=== PATIENT | male | born 1940 | race Caucasian/White ===

== ENCOUNTER 2016-08-23 15:20 | Emergency (ER) | payer MEDICARE ==
[~2016-08-23 15:20] MED LIST: ACETAMINOPHEN500 M4 GT; ADVAIR 2501 DISK W/D; ADVAIR 2501 DISK W/D IH; ADVAIR 25028 BLISTE1 INH; ADVAIR 25028 BLISTER INH; ADVAIR HFA 115-12 G1 IH; ADVAIR HFA 1151 PUFF INH; ALBUTEROL SULF8.5 GM IH; AMARYL2 M1 GT; AMARYL2 MG GT; AMARYL4 MG PO; AMBIEN CR12.5 MG GT; AMBIEN CR12.5 MG/BO GT; AMBIEN PAK10 MG; AMBIEN10 M1 GT; AMBIEN10 MG PO; ARTHROTEC 751 TAB.EC; ASPIR 8181 MG; ASPIR 8181 MG PO; ASPIR-TRIN325 M2 GT; ASPIRIN325 M3 GT; ASPIRIN325 MG GT; ASPIRIN325 MG PO; AZITHROMYCIN250 MG PO; BACTRIM DS TABL1 TAB; BISAC-EVAC10 MG RC; BISOPROLOL FUMAR5 MG PO; BROVANA15 MCG/22 INH; BUDESONIDE0.5 MG/21 IH; BUSPIRONE HCL15 M2 GT; BYSTOLIC2.5 MG PO; BYSTOLIC5 M1 GT; CAL; CAL HN; CEFPODOXIME PR200 MG GT; CHOLESTYRAMINE P4 GM GT; CITRATE OF MAG300 M1 PO; CLINDAMYCIN HC150 MG GT; CLINDAMYCIN HC300 M2 PO; CLONAZEPAM0.5 M2 GT; COLACE1 EAC1 RC; COLACE100 MG PO; COMBIVENT INH14.7 GM; COUGH SYRU100 MG/5 M GT; CRESTOR10 MG; CRESTOR10 MG GT; CRESTOR10 MG PO; CRESTOR10 MG/TAB GT; CRESTOR10 MG/TAB PO; CULTURELLE1 CAP GT; CULTURELLE1 EAC1 GT; CYMBALTA60 M1 PO; DAPTOMYCIN IV; DELTASONE10 MG PO; DIFLUCAN100 MG GT; DIMETAPP COLD GT; DULOXETINE HCL60 M1 GT; DUO-NEB; DUONEB 2.5-0.5 M3 ML; DUONEB 2.5-0.5 M3 ML IH; DUONEB 2.5-0.5 M3 ML NEB; DUONEB 2.5-0.5MG3 M1 AERO NEB; ECOTRIN325 M2 GT; EFFEXOR XR150 MG; EFFEXOR XR150 MG PO; EFFEXOR75 MG; ENEMA READY TO133 M1 RC; FANAPT10 MG GT; FANAPT6 MG PO; FEOSOL GT; FISH OIL 1,0001 CA1; FISH OIL 1,2001 CAP PO; FLOMAX0.4 MG GT; FLUVOXAMINE MA100 M3 GT; FLUVOXAMINE MA100 M3 PO; FLUVOXAMINE MA150 MG GT; GEODON80 MG; GEODON80 MG GT; GEODON80 MG PO; GLUCAGEN1 MG/1 ML IM; GLUCAGON EME1 MG/KIT IM; HUMALOG100 U/ML SQ; HUMALOG100 UNITS/ SC; HYTRIN GT; Hytrin PEG; IMODIUM A-D2 M3 PO; IPRAT-ALBUT 0.5-3 ML INH; IPRAT-ALBUT 0.5-3 ML NEB; IRON325 M1 PO; K-SOL20 MEQ/15 GT; K-SOL20 MEQ/15 PO; KENALOG TP; KLONOPIN0.5 M1 GT; LAMICTAL100 M2 GT; LAMICTAL100 MG; LAMICTAL200 M1 PO; LAMICTAL200 M2 GT; LAMICTAL200 MG; LAMICTAL200 MG GT; LAMICTAL200 MG PO; LANTUS100 U/ML; LANTUS100 U/ML SC; LANTUS100 UNITS/ SC; LASIX GT; LASIX20 M1 GT; LASIX20 M1 PO; LASIX40 MG GT; LASIX40 MG PO; LASIX80 MG PO; LEVAQUIN500 MG PO; LEVAQUIN750 M1 PO; LEVAQUIN750 MG; LEVAQUIN750 MG PO; LITHIUM; LOPERAMIDE2 M2 GT; LORTAB 10-3251 EAC1 GT; LOTREL 5-10 MG1 CAP; LOVENOX40 MG/0.1 SC; MAPAP325 M2 PO; MAPAP500 M2 GT; MEDROL DOSE-4 MG/TAB PO; METOPROLOL SUCC25 M1 GT; MILK OF MA400 MG/5 M GT; MILK OF MA400 MG/5 M PO; MILK OF MAGNESIA GT; MIRALAX17 G1 GT; MIRALAX17 G1 PO; MIRALAX17 GM PO; MUCINEX600 MG PO; NEURONTIN300 M1 GT; NORCO 5/3251 TA1 GT; NORCO 5/3251 TAB NG; NOVOLOG FL100 UNIT/1 SQ; NOVOLOG MIX 70/10 ML; NOVOLOG100 U/M SQ; NOVOLOG100 UNITS/ SC; OLANZAPINE15 M1 GT; OMNICEF300 MG PO; OXYCODON-ACETA1 EAC4 PO; PLAVIX75 MG PO; POTASSIUM20 MEQ/12 GT; POTASSIUM20 MEQ/13 GT; PREDNISONE10 M1 PO; PREDNISONE10 MG PO; PREDNISONE20 M1 PO; PREDNISONE20 MG GT; PREVACID SOLUTAB SL; PREVACID30 M2 GT; PREVACID30 M2 PO; PREVACID30 M3 GT; PREVALITE PACKET4 GM GT; PRISTIQ ER100 MG GT; PROVENTIL HFA6.7 G1 IH; PROVENTIL HFA6.7 G1 INH; PROVENTIL HFA6.7 GM IH; PROVENTIL17 GM; ROZEREM8 MG; ROZEREM8 MG GT; ROZEREM8 MG PO; SAPHRIS5 MG SL; SENNA8.6 M PO; SENNA8.6 M1 PO; SEROQUEL100 MG; SEROQUEL200 MG GT; SEROQUEL200 MG PO; SEROQUEL400 MG GT; SEROQUEL50 MG; SEROQUEL50 MG PO; SPIRIVA18 MC1 IH; SPIRIVA18 MCG IH; TAMSULOSIN HCL0.4 MG PO; TERAZOSIN HCL2 M1 GT; TRAMADOL HCL50 M2 PO; TRAMADOL HCL50 MG GT; TRAZODONE HCL100 M1 GT; TRIAMCINOLONE; TUSSI-PRES B LIQ5 ML GT; TUSSI-PRES LIQ118 ML PO; TUSSIONEX PENN115 ML; TUSSIONEX PENN480 ML GT; TYLENOL EXTRA500 M1 GT; TYLENOL EXTRA500 M1 PO; TYLENOL LI650 MG/20 GT; TYLENOL325 M2 GT; TYLENOL325 MG GT; TYLENOL500 MG; TYLENOL500 MG PO; TYLENOL650 MG PO; VIBRA-TABS100 MG PO; VIBRAMYCIN25 MG/5 ML GT; VIIBRYD20 MG GT; VIIBRYD20 MG PO; VIIBRYD40 MG PO; VITAMIN D1000 UNI1 PO; VITAMIN D35000 UNIT PO; ZEBETA5 MG PO; ZEGERID 40 MG P1 PKT GT; ZITHROMAX250 M1 PO; ZITHROMAX250 MG PO; ZYPREXA10 M1 GT; [UNRECOGNIZED DRUG - OTHER]; [UNRECOGNIZED DRUG - OTHER] GT; [UNRECOGNIZED DRUG - OTHER] PO
[2016-08-23] MEDS ORDERED: NAMENDA5 M1 GT (15:33)
[2016-08-23] MEDS ORDERED: NAMENDA10 M1 GT (15:34)
[2016-08-23] MEDS ORDERED: BUPROPION XL300 M1 PO (15:36)
[2016-08-23] MEDS ORDERED: SPIRIVA18 MC1 INH (15:37)
[2016-08-23 15:58] LABS: BASO % 0.1 % (0-2); EOS % 2.5 % (0-7); EOSINOPHIL ABSOLUTE COUNT 0.2 tho/cmm (0.0-0.7); HCT-HEMATOCRIT 38.9 % (36.0-53.5); HGB-HEMOGLOBIN 12.9 gm/dl (13.5-17.0); IMMATURE GRANULOCYTES ABSOLUTE 0.05 tho/cmm (0-0.03); IMMATURE GRANULOCYTES PERCENT 0.6 % (0-0.3); LYMPH % 11.5 % (20-45); LYMPH ABSOLUTE COUNT 0.9 tho/cmm (0.8-4.5); MCH (MEAN CORPUSCULAR HGB) 32.7 pg (28.0-32.0); MCHC MEAN CORPUSCULAR HGB CONC 33.2 % (32.0-36.0); MCV (MEAN CELL VOLUME) 98.5 fl (82.0-96.0); MONO % 6.1 % (0-12); MONOCYTE ABSOLUTE COUNT 0.5 tho/cmm (0.0-1.2); NEUTROPHIL ABSOLUTE COUNT 6.3 tho/cmm (1.6-8.0); NEUTROPHIL-AUTOMATED 6.3 tho/cmm (1.6-8.0); NEUTROPHILS % 79.2 % (40-80); PLATELET COUNT 120 tho/cmm (150-450); RED BLOOD COUNT 3.95 mil/cmm (4.40-5.70); RED CELL DISTRIBUTION WIDTH 15.4 % (12.4-16.4); WHITE BLOOD COUNT 7.9 tho/cmm (4.0-10.0)
[2016-08-23 16:00] LABS: ABG CO2 ARTERIAL 27 mmol/L (21-27); ARTERIAL BLD GAS O2 SATURATION 93 % (95-98); ARTERIAL BLOOD GAS PCO2 41 mmHg (32-45); ARTERIAL PO2 62 mmHg (70-100); BICARBONATE 26 mmol/L (21-28); BLOOD GAS BASE EXCESS 2 mM/L (-/+3); PH 7.42 Units (7.35-7.45)
[2016-08-23 16:34] LABS: PROCALCITONIN 0.14 ng/ml (0.05-0.09)
[2016-08-23 16:35] LABS: ALB/GLOB RATIO 1.1 (0.8-2.0); ALBUMIN 3.8 g/dl (3.5-5.0); ALKALINE PHOSPHATASE 60 U/L (33-138); ALT/SGPT 15 U/L (12-78); ANION GAP 14 mmol/L (0-20); AST/SGOT 18 U/L (10-40); BILIRUBIN,TOTAL 0.6 mg/dl (0.0-1.5); BLOOD UREA NITROGEN 29 mg/dl (6-24); CALCIUM 10.3 mg/dl (8.5-10.5); CARBON DIOXIDE-VENOUS 27 mmol/L (22-32); CHLORIDE 104 mmol/l (96-110); CREATININE 1.43 mg/dl (0.60-1.30); GLUCOSE 213 mg/dL (70-110); POTASSIUM 4.9 mmol/L (3.7-5.1); SODIUM 140 mmol/L (135-145); eGFR VALUE FOR BLACK 54 mL/Min
[2016-08-23] MEDS ORDERED: LEVAQUIN500 M1 PO (17:26)
[2016-08-23] MEDS ORDERED: PREDNISONE10 M1 PO (17:26)
== END 2016-08-23 17:40 ==
LOC: EDMED 15:20
PROVIDERS: Emergency Medicine
DX: J44.1 Chronic obstructive pulmonary disease with (acute) exacerbation (principal); J40 Bronchitis, not specified as acute or chronic; I25.10 Atherosclerotic heart disease of native coronary artery without angina pectoris; E11.22 Type 2 diabetes mellitus with diabetic chronic kidney disease; N18.9 Chronic kidney disease, unspecified; E78.5 Hyperlipidemia, unspecified; F31.9 Bipolar disorder, unspecified; G47.33 Obstructive sleep apnea (adult) (pediatric); Z87.891 Personal history of nicotine dependence; Z95.1 Presence of aortocoronary bypass graft; Z95.5 Presence of coronary angioplasty implant and graft; Z79.82 Long term (current) use of aspirin; Z79.51 Long term (current) use of inhaled steroids; Z79.899 Other long term (current) drug therapy
CPT/HCPCS: J2930; J7030

== ENCOUNTER 2016-09-01 10:22 | Emergency (ER) | payer MEDICARE ==
[~2016-09-01 10:22] MED LIST changes: +BUPROPION XL300 M1 PO; +LEVAQUIN500 M1 PO; +NAMENDA10 M1 GT; +NAMENDA5 M1 GT; +SPIRIVA18 MC1 INH
== END 2016-09-01 11:39 ==
LOC: EDMED 10:22
PROC: 0D2DXUZ Change Feeding Device in Lower Intestinal Tract, External Approach (ICD-10-PCS; principal; 2016-09-01)
DX: T85.528A Displacement of other gastrointestinal prosthetic devices, implants and grafts, initial encounter (principal); J44.9 Chronic obstructive pulmonary disease, unspecified; I25.10 Atherosclerotic heart disease of native coronary artery without angina pectoris; Z85.51 Personal history of malignant neoplasm of bladder; Z86.73 Personal history of transient ischemic attack (TIA), and cerebral infarction without residual deficits; Z79.899 Other long term (current) drug therapy; Z79.82 Long term (current) use of aspirin
CPT/HCPCS: Q9966